=== PATIENT | male | born 1985 ===

== ENCOUNTER 2022-06-08 13:31 | Emergency (ER) | payer SELFPAY | END 2022-06-09 06:00 | disposition left against medical advice (07) | LOC: ED 13:31 | DX: S62.90XA Unspecified fracture of unspecified hand, initial encounter for closed fracture (principal); Z53.21 Procedure and treatment not carried out due to patient leaving prior to being seen by health care provider; X58.XXXA Exposure to other specified factors, initial encounter; Y93.9 Activity, unspecified; Y92.89 Other specified places as the place of occurrence of the external cause; Y99.8 Other external cause status ==